=== PATIENT | female | born 1930 | race Caucasian/White ===

== ENCOUNTER 2017-04-07 09:57 | Emergency (ER) | payer MEDICARE, OTHER ==
[~2017-04-07] VITALS: Ht 160 cm; Wt 40.8 kg
[2017-04-07] MEDS ORDERED: K-TAB ER20 MEQ PO (10:45)
[2017-04-07] MEDS ORDERED: MEMANTINE HCL5 MG PO (10:46)
[2017-04-07] MEDS ORDERED: PLAVIX75 MG PO (10:47)
[2017-04-07] MEDS ORDERED: NIFEDIPINE ER30 M1 PO (10:47)
[2017-04-07] MEDS ORDERED: NORCO 5-325 TA1 EACH PO (10:48)
[2017-04-07] MEDS ORDERED: LUTEIN20 MG PO (10:48)
[2017-04-07] MEDS ORDERED: NITROSTAT0.4 MG SL (10:57)
== END 2017-04-07 13:48 | disposition home or self-care (01) ==
LOC: ED 09:57
DX: S32.10XA Unspecified fracture of sacrum, initial encounter for closed fracture (principal); S32.602A Unspecified fracture of left ischium, initial encounter for closed fracture; Z88.8 Allergy status to other drugs, medicaments and biological substances; Z88.7 Allergy status to serum and vaccine; Z88.0 Allergy status to penicillin; Z79.899 Other long term (current) drug therapy; W11.XXXA Fall on and from ladder, initial encounter
CPT/HCPCS: 72192; 73502; 99284

== ENCOUNTER 2017-09-22 09:58 | Emergency (ER) | payer MEDICARE, OTHER ==
[~2017-09-22] VITALS: Ht 160 cm; Wt 40.8 kg
--- OUTSIDE RECORDS SUMMARY | ~2017-09-22 | XMS | Clinical Summary ---
Demographics + + + | Address | [address] | | | [place] [address] | + + + | Home Phone | | + + + | Preferred Language | Unknown | + + + | Marital Status | Single | + + + | Caodaism Affiliation | Unknown | + + + | Race | White | + + + | Ethnic Group | Not or | + + + Author + + + | Author | NON REVENUE LOCATIONS | + + + | Organization | NON REVENUE LOCATIONS | + + + | Address | Unknown | + + + | Phone | Unavailable | + + + Support + + +---------+ + | Name | Relationship | Address | Phone | + + +---------+ + | KRISTINA PARSONS | ECON | Unknown | | + + +---------+ + Care Team Providers + +------+ + | Care Supervising Fire Marshal Name | Role | Phone | + +------+ + | Jillian Oshea MD | PP | | + +------+ + Source Comments JAQUAN is fully live on both [facility] Ambulatory and [facility] InPatient.[facility] Allergies Not on File Current Medications Not on file Active Problems Not on file Social History + +-------+ +--------+------+ | Tobacco Use | Types | Packs/Day | Years | Date | | | | | Used | | + +-------+ +--------+------+ | Never Assessed | | | | | + +-------+ +--------+------+ + + + | Sex Assigned at | Date Recorded | | | | + + + | Not on file | | + + + Plan of Treatment + + + + + | Health Maintenance | Due Date | Last Done | Comments | + + + + + | INFLUENZA VACCINE | | | | | (FLU SHOT) | 8 | | | + + + + + Results Not on filefrom Last 3 Months"
--- OUTSIDE RECORDS SUMMARY | ~2017-09-22 | XMS | Clinical Summary ---
Demographics + + + | Address | [address] | | | [place] [address] | + + + | Home Phone | | + + + | Preferred Language | Unknown | + + + | Marital Status | Single | + + + | Tenriism Affiliation | Unknown | + + + [...] Team Providers + +------+ + | Care Instructor Private Name | Role | Phone | + +------+ + | Jillian Oshea MD | PP | | + +------+ + Source Comments JAQUAN is fully live on both [facility] Ambulatory and [facility] InPatient.[facility] Allergies Not on File Current [...]
--- OUTSIDE RECORDS SUMMARY | ~2017-09-22 | XMS | Encounter Summary ---
Demographics + + + | Address | [address] | | | [address] | | | [place] [address] | + + + | Home Phone | | + + + | Preferred Language | Unknown | + + + | Marital Status | | + + + | Sikhism Affiliation | Unknown | + + + | Race | Unknown | + + + | Ethnic Group | Unknown | + + + Author + + + | Author | [facility] | | | and [place] | + + + | Organization | [facility] | | | and [place] | + + + | Address | Unknown | + + + | Phone | Unavailable | + + + Support + + + + + | Name | Relationship | Address | Phone | + + + + + | Emre Chilel | ECON | [address] | | | | | [place] [address] | | + + + + + | Kristina Guzman | ECON | Unknown | | + + + + + | Leni Landa | ECON | Unknown | | + + + + + Care Team Providers + +------+ + | Care Buggyman Name | Role | Phone | + +------+ + | Jillian Oshea MD | PCP | | + +------+ + Encounter Details +--------+ + + + + | Date | Type | Department | Care Team | Description | +--------+ + + + + | 08/27/ | Orders Only | Results for | Jillian Oshea | Other mcc | | 2017 | | [facility] | MD Leeann [address] | (current) drug | | | | and Services | [address] [place] [address] | therapy | | | | Region [phone] | [place] [address] | | | | | | [phone] | | | | | | | | +--------+ + + + + Social History + +-------+ +--------+------+ | Tobacco Use | Types | Packs/Day | Years | Date | | | | | Used | | + +-------+ +--------+------+ | Unknown If Ever | | | | | | Smoked | | | | | + +-------+ +--------+------+ + + +---------+ + | Alcohol Use | Drinks/We | oz/Week | Comments | | | ek | | | + + +---------+ + | No | | | | + + +---------+ + + + + | Sex Assigned at | Date Recorded | | | | + + + | Not on file | | + + + as of this encounter Functional Status + + + + | Functional Status | Response | Date of Assessment | + + + + | Are you deaf or do you have serious | No | 06/07/2015 | | difficulty hearing? | | | + + + + | Are you blind or do you have serious | Yes | 06/07/2015 | | difficulty seeing, even when wearing | | | | glasses? | | | + + + + | Do you have serious difficulty walking or | Yes | 06/07/2015 | | climbing stairs? (5 years old or older) | | | + + + + + + + + | Cognitive Status | Response | Date of Assessment | + + + + | Because of a physical, mental, or emotional | No | 06/07/2015 | | condition, do you have serious difficulty | | | | concentrating, remembering, or making | | | | decisions? (5 years old or older) | | | + + + + as of this encounter Plan of Treatment Not on fileas of this encounter Results Drugs of Abuse, Screen, Urine (08/27/2017 1657) + + + + | Component | Value | Ref Range | + + + + | Barbiturates Screen, | Negative | Negative | | Urine | | | + + + + | Benzodiazepines, | Negative | Negative | | Urine, Screen | | | + + + + | Cannabinoids Screen, | Negative | Negative | | Urine | | | + + + + | Cocaine Screen, | Negative | Negative | | Urine | | | + + + + | Methadone Screen, | Negative | Negative | | Urine | | | + + + + | Opiates Screen, | Negative | Negative | | Urine | | | + + + + | Phencyclidine | Negative | Negative | | Screen, Urine | | | + + + + | Methamphetamine | Negative | Negative | | Screen, Urine | | | + + + + | Amphetamine Screen, | Negative | Negative | | Urine | | | + + + + | TCA | Negative | Negative | + + + + | Oxycodone Screen, | Negative | Negative | | Urine | | | + + + + | Propoxyphene Screen, | Negative | Negative | | Urine | | | + + + + | Buprenorphine | Negative | Negative | | screen, Urine | | | + + + + + + + | Specimen | Performing Laboratory | + + + | Urine | [facility] [address] | | | [place] [address] | + + + Drugs of Abuse, Confirm, Urine (08/27/2017 1656) + + + | Specimen | Performing Laboratory | + + + | Urine | [facility] [address] | | | [place] [address] | + + + + + | Narrative | + + | See scanned image | + + in this encounter Visit Diagnoses + + | Diagnosis | + + | Other equipment operator intermodal yard (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
--- OUTSIDE RECORDS SUMMARY | ~2017-09-22 | XMS | Clinical Summary ---
Demographics + + + | Address | [address] | | | [address] | | | [place] [address] | + + + | Home Phone | | + + + | Preferred Language | Unknown | + + + | Marital Status | | + + + | Mandaen Affiliation | Unknown | + + + | Race | Unknown | + + + | Ethnic Group | Unknown | + + + Author + + + | Author | [facility] | | | and [place] | + + + | Organization | [facility] | | | and [place] | + + + | Address | Unknown | + + + | Phone | Unavailable | + + + Support + + + + + | Name | Relationship | Address | Phone | + + + + + | Emre Mayfield | ECON | [address] | | | | | [place] [address] | | + + + + + | Kriss Banks | ECON | Unknown | | + + + + + | Leni Landa | ECON | Unknown | | + + + + + Care Team Providers + +------+ + | Care Model Maker Fiberglass Name | Role | Phone | + +------+ + | Jillian Oshea MD | PP | | + +------+ + Allergies + + + + + + | Active Allergy | Reactions | Severity | Noted | Comments | | | | | Date | | + + + + + + | Donepezil | | | 06/04/19 | Leg pains | | | | | 16 | | + + + + + + | Influenza Vaccines | | | 06/04/19 | Rash/swelling | | | | | 16 | | + + + + + + | Meperidine | | | 06/04/19 | | | | | | 16 | | + + + + + + | Nortriptyline | | | 06/04/19 | | | | | | 16 | | + + + + + + | Penicillins | | | 06/04/19 | | | | | | 16 | | + + + + + + | Quinine | | | 06/04/19 | | | | | | 16 | | + + + + + + | Reserpine | | | 06/04/19 | | | | | | 16 | | + + + + + + | Tegaserod | | | 06/04/19 | | | | | | 16 | | + + + + + + | Tetanus Toxoids | | | 06/04/19 | This pt has a hard | | | | | 16 | time with almost | | | | | | any shot per Dr. | | | | | | [facility]KS 01/16/2006 | + + + + + + Current Medications + + + +---------+------+------+-------+ | Prescription | Sig. | Disp. | Refills | Star | End | Statu | | | | | | t | Date | s | | | | | | Date | | | + + + +---------+------+------+-------+ | alendronate | Take 70 mg by mouth | | | | | Activ | | (FOSAMAX) 70 mg | every 7 days. | | | | | e | | tablet | | | | | | | + + + +---------+------+------+-------+ | nitroglycerin | Place 1 tablet under | 100 | 12 | / | | Activ | | (NITROSTAT) 0.4 mg | the tongue every 5 | tablet | | 2/20 | | e | | SL tablet | minutes as needed | | | 16 | | | | | for Chest pain. | | | | | | + + + +---------+------+------+-------+ | mirtazapine | Take 1 tablet by | 30 | 0 | 02/0 | | Activ | | (REMERON) 7.5 MG | mouth nightly. | tablet | | 2/20 | | e | | tablet | | | | 17 | | | + + + +---------+------+------+-------+ | menthol-methyl | Apply 1 Application | 99.2 g | 0 | 02/0 | | Activ | | salicylate (ICY HOT | topically 3 times | | | 2/20 | | e | | BALM EXTRA STRENGTH) | daily as needed (rub | | | 17 | | | | 7.6-29 % OINT | on back). | | | | | | + + + +---------+------+------+-------+ | magnesium oxide | Take 1 tablet by | 90 | 0 | 02/0 | | Activ | | (MAG-OX) 400 mg | mouth 3 times daily. | tablet | | 2/20 | | e | | tablet | | | | 17 | | | + + + +---------+------+------+-------+ | lidocaine | Place 1 patch onto | 30 | 0 | 02/0 | | Activ | | (LIDODERM) 5% patch | the skin Daily. | patch | | 2/20 | | e | | | Apply for 12 hours, | | | 17 | | | | | then remove for 12 | | | | | | | | hours. | | | | | | + + + +---------+------+------+-------+ | | Take 1-2 tablets by | 60 | 0 | 02/0 | | Activ | | HYDROcodone-acetamin | mouth every 4 hours | tablet | | 2/20 | | e | | ophen (NORCO) 10-325 | as needed for Pain. | | | 17 | | | | mg per tablet | | | | | | | + + + +---------+------+------+-------+ | fentaNYL | Place 1 patch onto | 10 | 0 | 02/0 | | Activ | | (DURAGESIC) 12 | the skin every 72 | patch | | 2/20 | | e | | mcg/hr | hours. | | | 17 | | | + + + +---------+------+------+-------+ | polyethylene | Take 1 diluted | 30 each | 0 | 02/0 | | Activ | | glycol (MIRALAX) | packet by mouth | | | 2/20 | | e | | packet | Daily as needed. | | | 17 | | | + + + +---------+------+------+-------+ | docusate sodium | Take 100 mg by mouth | 60 | 0 | 02/0 | | Activ | | (COLACE) 100 MG | Twice daily as | capsule | | 2/20 | | e | | capsule | needed for | | | 17 | | | | | Constipation. | | | | | | + + + +---------+------+------+-------+ | aspirin 81 mg | Take 1 tablet by | 30 | 0 | 02/0 | | Activ | | chewable tablet | mouth Daily. | tablet | | 2/20 | | e | | | | | | 17 | | | + + + +---------+------+------+-------+ | clopidogrel | Take 1 tablet by | 30 | 0 | 02/0 | | Activ | | (PLAVIX) 75 mg | mouth Daily. | tablet | | 2/20 | | e | | tablet | | | | 17 | | | + + + +---------+------+------+-------+ | latanoprost | Place 1 drop into | 2.5 mL | 0 | 02/0 | | Activ | | (XALATAN) 0.005% | the right eye | | | 2/20 | | e | | ophthalmic solution | nightly. | | | 17 | | | + + + +---------+------+------+-------+ | gabapentin | Take 2 capsules by | 60 | 0 | 02/0 | | Activ | | (NEURONTIN) 300 mg | mouth Daily. | capsule | | 2/20 | | e | | capsule | | | | 17 | | | + + + +---------+------+------+-------+ | memantine | Take 1 tablet by | 60 | 0 | 02/0 | | Activ | | (NAMENDA) 5 mg | mouth 2 times daily. | tablet | | 2/20 | | e | | tablet | | | | 17 | | | + + + +---------+------+------+-------+ | NIFEdipine (ADALAT | Take 1 tablet by | 30 | 0 | 02/0 | | Activ | | CC) 30 mg 24 hr | mouth Daily. | tablet | | 2/20 | | e | | tablet | | | | 17 | | | + + + +---------+------+------+-------+ | omeprazole | Take 1 capsule by | 60 | 0 | 02/0 | | Activ | | (PRILOSEC) 20 mg | mouth 2 times daily. | capsule | | 2/20 | | e | | capsule | | | | 17 | | | + + + +---------+------+------+-------+ Active Problems + + + | Problem | Noted Date | + + + | Failure to thrive in adult | 06/24/2016 | + + + | Weight loss | 06/24/2016 | + + + | Fall | 06/24/2016 | + + + + + | Overview: Mechanical | + + + + + | Chronic right-sided low back pain | 06/24/2016 | + + + | Compression fracture of vertebral column with delayed healing | 06/24/2016 | + + + + + | Overview: T11 | + + + + + | Dehydration with hyponatremia | 06/24/2016 | + + + | Hypokalemia | 06/24/2016 | + + + | At risk for falls | 06/21/2016 | + + + | Coronary artery disease involving bad river band coronary artery of | 06/07/2015 | | bad river band heart with unstable angina pectoris (HCC) | | + + + | Acute ST elevation myocardial infarction (STEMI) involving left | 06/04/2015 | | anterior descending coronary artery (HCC) | | + + + | Arthritis | 06/04/2015 | + + + | 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 | + + + + + | Chronic pain | 06/04/2015 | + + + + + | Overview: Overview: | | MRF on file 2010 | | Pain Scale 08/19/2012, 01/29/2013 | + + + + + | Dyslipidemia | 06/04/2015 | + + + | Environmental allergies | 06/04/2015 | + + + | Gastroesophageal reflux disease | 06/04/2015 | + + + + + | Overview: Overview: Omeprazole increased to 40mg BID by | Vee Neri 06/2014. Continue domperidone for delayed gastric | | emptying. | + + + + + | Hypertension | 06/04/2015 | + + + + + | Overview: Overview: Gets white coat HTN. 24 hour ambulatory | | BP recording 03/2011 with BPs >140 38% of the time and BPd >90 5% | | of the time. She definitely has labile BP. Max BPs is 176 but | | Min BPs is 96! Most of the BP readings are in acceptable range, | | so at this time (and considering patient preference) will not | | make any change to BP treatment. | + + + + + | Neuropathic pain syndrome (non-herpetic) | 06/04/2015 | + + + | Spinal stenosis | 06/04/2015 | + + + | Dementia | 04/05/2015 | + + + + + | Overview: Overview: | | 03/03: BRIDGER HUFF score 17 | + + + + + | Chronic constipation | 07/14/2014 | + + + + + | Overview: Overview: | | Miralax daily, add citrucel as needed. | + + + + + | Screening for condition | 09/11/2013 | + + + + + | Overview: Overview: | | SARA given 09/11/2013 score 59.3 level 3 | + + + + + | Rectal prolapse | 04/14/2013 | + + + + + | Overview: Overview: Consult 06/[address] Ingram - caron | | candidate for perineal rectosigmoidectomy. Per pt preference | | (intolerant of being on her back per her report) planning an | | observational approach for now.Distal ischemia seen on | | colonoscopy 06/2014. Plan for repair with Dr Ingram from below. | + + + + + | Unsteady gait | 04/08/2013 | + + + | Decreased muscle tone | 03/12/2013 | + + + | Decubitus ulcer of sacral region | 03/12/2013 | + + + | Obstructed diaphragmatic hernia | 02/13/2013 | + + + + + | Overview: Overview: Transferred to [place] 01/2013 for | | repair of para-esophageal hernia. | + + +---------+ + | Anxiety | 06/29/2012 | +---------+ + + + | Overview: Overview: | | See note 06/27/12 | + + + + + | Atrophic vaginitis | 05/29/2012 | + + + + + | Overview: Overview: Started 02/2012 - need to add | | progesterone if still using in July. | + + + + + | Lower urinary tract infectious disease | 05/29/2012 | + + + + + | Overview: Overview: No typical symptoms with these - when she | | has a clinical change need to check UA. | + + + + + | Pyelonephritis | 05/18/2012 | + + + | Hiatal hernia | 12/18/2011 | + + + + + | Overview: Overview: 01/2013 - hospitalized for incarcerated | | stomach from a large type IV paraesophageal hernia, s/p lap | | repair 02/11/13. | + + + + + | Retinal hemorrhage | 12/18/2011 | + + + | Retinal tear | 12/18/2011 | + + + + + | Overview: Overview: Had eyes checked in [place] 01/2012 - | | retina attachment surgery worked 2nd time around. Thinks she | | might need f/u with Dr Newton. Still doesn't have much vision, | | not sure what she's going to get back. Didn't feel up to any | | more surgeries, plans to f/u with them in the spring. | + + + + + | Advance directive discussed with patient | 06/26/2011 | + + + + + | Overview: Overview: | | POLST 12/2013 - DNR/DNI, comfort measures only | | POLST 02/2012 - DNR/DNI | | Advance Directive dated 04/16/00 | + + + + + | Recurrent falls | 05/21/2011 | + + + | Cystocele | 04/03/2011 | + + + + + | Overview: Overview: 01/2013 - had procedure. No problems. "I | | go to the bathroom like people are supposed to and I can even | | hold it." "Everything is up where it belongs." "There's kind | | of a hard thing sticking out down there and I don't have a clue | | what it is." Per doctor he didn't cut it off because didn't want | | her to hurt.Dr Denia Aiken [facility] - [phone]. Going to | | do colpocliesis 12/23/12.06/2012 - upgraded to Size 4 pessary ring | | with support. Restarted use of pessary with daily estrogen | | 02/2012 - needs to add progesterone within 6 months if not yet | | gone for surgical fix (and stopped estrogen).Service Station Attendant exam 02/2011 - | | fitted for #2 pessary. | + + + + + | Glaucoma | 04/03/2011 | + + + + + | Overview: Overview: From last OV 03/09/[address] Newton: | | "The right eye is the only good eye. Risk of losing this in the | | next 5 years is 30%. Decreased risk of vision loss by 25% is had | | by taking Lutien, Vit E, Vit C and Zinc. I wonder if she might | | tolerate some of these at this point. Thanks for your help with | | her."Follows with Dr Newton, treated with laser in past | + + + + + | Urge incontinence of urine | 04/03/2011 | + + + + + | Overview: Overview: Severe cystocele - no mood for using | | pessary at this time. Knee and shoulders hurting so bad it's not | | worth it. | + + + + + | Osteoporosis | 03/25/2011 | + + + + + | Overview: Overview: Started Fosamax 03/2011. On | | Calcium/Vitamin D (level 37 02/2011 so increased to 2000 IU | | daily)DEXA scan 02/2011 with T score -4.5 distal radius (can't | | lie flat for normal DEXA scan). | + + + + + | Special screening for malignant neoplasms, colon | 02/27/2011 | + + + + + | Overview: Overview: | | Colonoscopy 06/2014, mild diverticulosis. | | Last done 2004 repeate 10 years | + + Encounters +--------+ + + + + | Date | Type | Specialty | Care Team | Description | +--------+ + + + + | 08/27/ | Orders Only | | Jillian Oshea | Other graphic design assistant | | 2018 | | | MD Leeann | (current) drug | | | | | | therapy | +--------+ + + + + from Last 3 Months Social History + +-------+ +--------+------+ | Tobacco [...] on file | | + + + Last Filed Vital Signs + + + + | Vital Sign | Reading | Time Taken | + + + + | Blood Pressure | 141/79 | 06/28/20164 PST | + + + + | Pulse | 79 | 06/28/20161043 PST | + + + + | Temperature | 36.3 C (97.3 F) | 06/28/20161043 PST | + + + + | Respiratory Rate | 16 | 06/28/20161043 PST | + + + + | Oxygen Saturation | 100% | 06/28/20161043 PST | + + + + | Inhaled Oxygen | - | - | | Concentration | | | + + + + | Weight | 37 kg (81 lb 8 oz) | 06/24/20161314 PST | + + + + | Height | 152.4 cm (5') | 06/24/20161314 PST | + + + + | Body Mass Index | 15.92 | 06/24/20161314 PST | + + + + Plan of Treatment Not on file Implants + +-------+--------+ +--------+--------+--------+ | Implanted | Type | Area | Manufacture | Device | Expira | Model | | | | | r | | tion | / | | | | | | Identi | Date | Serial | | | | | | fier | | / Lot | + +-------+--------+ +--------+--------+--------+ | Barry Xience Coronary Stent | Stent | Right: | BARRY | | 03/22/ | [id number] | | 3.0mm X 18mmImplanted: Qty: 1 | | Heart | VASCULAR - | | 2017 | 0 / | | on 06/06/2015 by Eric Mishra | | | DANY | | | | | MD Felice | | | | | | /[id number] | | | | | | | | 41 | + +-------+--------+ +--------+--------+--------+ | Barry Xience Coronary Stent | Stent | Left: | BARRY | | 02/06/ | [id number] | | 3.5mm X 18mmImplanted: Qty: | | Heart | VASCULAR - | | 2018 | 0-18 / | | 1 on 06/06/2015 by Vee Mishra | | DANY | | | | | Eric Viveros MD | | | | | | /[id number] | | | | | | | | 41 | + +-------+--------+ +--------+--------+--------+ | Barry Xience Coronary Stent | Stent | Left: | BARRY | | 07/20/ | [id number] | | 2.5mm X 12mm Implanted: Qty: | | Heart | VASCULAR - | | 2018 | 0-12 / | | 1 on 06/06/2015 by Tad, | | | DANY | | | | | Eric Viveros MD | | | | | | /[id number] | | | | | | | | 41 | + +-------+--------+ +--------+--------+--------+ Results Drugs of Abuse, Screen, Urine (08/27/20171656) + + + + | Component | [...] | + + + | Urine | [facility] [address] | | | [place] [address] | + + + Drugs of Abuse, Confirm, Urine (08/27/2017 5420) + + + | Specimen | Performing Laboratory | + + + | Urine | [facility] [address] | | | [place] [address] | + + + + + | Narrative | + + | See scanned image | + + from Last 3 Months Insurance + +--------+ +--------+ +---------+ | Payer | Benefi | Subscriber | Type | Phone | Address | | | t Plan | ID | | | | | | / | | | | | | | Group | | | | | + +--------+ +--------+ +---------+ | MEDICARE | MEDICA | xxxxxxxxxx | Medica | +1- | | | | RE | | re | [id number] | | | | PART A | | | | | | | AND B | | | | | + +--------+ +--------+ +---------+ | MEDICARE | MEDICA | xxxxxxxxxx | Medica | +1- | | | | RE | | re | [phone] | | | | PART A | | | | | | | AND B | | | | | + +--------+ +--------+ +---------+ | AARP | AARP | xxxxxxxxxxx | Indemn | +- | | | | MDCR | | ity | 5800 | | | | SUPPL | | | | | + +--------+ +--------+ +---------+ | AARP | AARP | xxxxxxxxxxx | Indemn | +- | | | | MDCR | | ity | 5800 | | | | SUPPL | | | | | + +--------+ +--------+ +---------+ + +--------+ +--------+ + + | Guarantor Name | Accoun | Relation to | Date | Phone | Billing Address | | | t Type | Patient | of | | | | | | | | | | + +--------+ +--------+ + + | PRIYA MAYFIELD | Person | Self [birth year] Home: | [address] | | | al/Fam | | 1931 | [phone] | [address] | | | jhonny | | | [phone] | [place] [address] | + +--------+ +--------+ + + | PRIYA MAYFIELD | Person | Self [birth year] | Home: | [address] | | | al/Fam | | 1931 | [phone] | [address] | | | [address]honny | | | [phone] | [place] [address] | + +--------+ +--------+ + +
--- OUTSIDE RECORDS SUMMARY | ~2017-09-22 | XMS | Encounter Summary ---
Demographics + + + | Address | C/O KRISTINA GUZ[address] | | | [address] | | | [place] [address] | + + + | Home Phone | | + + + | Preferred Language | Unknown | + + + | Marital Status | | + + + | Orthodoxy Affiliation | Unknown | + + + | Race | Unknown | + + + | Ethnic Group | Unknown | + + + Author + + + | Author | [facility] | | | and Darrinana | + + + | Organization | [facility] | | | [...] | | | | | [place] [address] | | + + + + + | Kristina Guzman | ECON | Unknown | | + + + + + | Leni Landa | ECON | Unknown | | + + + + + Care Team Providers + +------+ + | Care Telephone Answering Service Operator Name | Role | Phone | + +------+ + | Jillian Oshea MD | PCP | | + +------+ + Encounter Details +--------+ + + + + | Date | Type | Department | Care Team | Description | +--------+ + + + + | 08/27/ | Orders Only | Results for | Jillian Oshea | Other fpc | | 2017 | | [facility] | MD Leeann [address] | (current) drug | | | | and Services | [address] [place] [address] | therapy | | | | Region [phone] | [place] [address] | | | | | | [phone] | | | | | | | [...] | + + + | Urine | [facility] [address] | | | [place] [address] | + + + Drugs of Abuse, Confirm, Urine (08/27/2017 1656) + + + | Specimen | Performing Laboratory | + + + | Urine | [facility] [address] | | | [place] [address] | + + + + + | Narrative | + + | See scanned image | + + in this encounter Visit Diagnoses + + | Diagnosis | + + | Other 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
--- OUTSIDE RECORDS SUMMARY | ~2017-09-22 | XMS | Clinical Summary ---
Demographics + + + | Address | [address]O KRISS BANKS | | | [address] | | | [place] [address] | + + + | Home Phone | | + + + | Preferred Language | Unknown | + + + | Marital Status | | + + + | Quaker Affiliation | Unknown | + + + | Race | Unknown | + + + | Ethnic Group | Unknown | + + + Author + + + | Author | [facility] | | | and Darrinana | + + + | Organization | 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 Going to | | do colpocliesis 12/23/12.06/2012 - upgraded to Size 4 pessary ring | | with support. Restarted use of pessary with daily estrogen | | 02/2012 - needs to add progesterone within 6 months if not yet | | gone for surgical fix (and stopped estrogen).Educational Program Assistant exam 02/2011 - | | fitted for [...] Only | | Jillian Oshea | Other superintendent container terminal | | 2018 | | | MD [...] Right: | BARRY | | 03/22/ | [id number] | | 3.0mm X 18mmImplanted: Qty: 1 | | Heart | VASCULAR - | | 2017 | 0 / | | on 06/06/2015 by Eric Mishra | | | DANY | | | | | MD Felice | | | | | | /[id number] | | | | | | | | 41 | + +-------+--------+ +--------+--------+--------+ | Barry Xience Coronary Stent | Stent | Left: | BARRY | | 02/06/ | [id number] | | 3.5mm X 18mmImplanted: Qty: | | Heart | VASCULAR - | | 2018 | 0-18 / | | 1 on 06/06/2015 by Vee Mishra | | DANY | | | | | Eric Viveros MD | | | | | | /[id number] | | | | | | | | 41 | + +-------+--------+ +--------+--------+--------+ | Barry Xience Coronary Stent | Stent | Left: | BARRY | | 07/20/ | [id number] | | 2.5mm X 12mm Implanted: Qty: | | Heart | VASCULAR - | | 2018 | 0-12 / | | 1 on 06/06/2015 by Tad, | | | DANY | | | | | Eric Viveros MD | | | | | | /[id number] | | | | | | | [...] | + + + | Urine | [facility] [address] | | | [place] [address] | + + + Drugs of Abuse, Confirm, Urine (08/27/2017 9208) + + + | Specimen | Performing Laboratory | + + + | Urine | [facility] [address] | | | [place] [address] | + + + + + | [...] | | 1931 | [phone] | [address] | | | jhonny | | | [phone] | [place] [address] | + +--------+ +--------+ + + | PRIYA MAYFIELD | Person | Self | [birth year] | Home: | [address] | | | al/Fam | | 1931 | [phone] | [address] | | | jhonny | | | [phone] | [place] [address] | + +--------+ +--------+ + +
[~2017-09-22 09:58] MED LIST: K-TAB ER20 MEQ PO; LUTEIN20 MG PO; MEMANTINE HCL5 MG PO; NIFEDIPINE ER30 M1 PO; NITROSTAT0.4 MG SL; NORCO 5-325 TA1 EACH PO; PLAVIX75 MG PO
[2017-09-22] MEDS ORDERED: ISOSORBIDE MONO30 MG PO (13:23)
--- NOTE | 2017-09-22 21:58 | EKG ---
[facility] [address] [facility] [place] [address] Signed Normal sinus rhythm Low voltage QRS Cannot rule out Anterior infarct , age undetermined Abnormal ECG No previous ECGs available Confirmed by NATALYA KRISHNA MD ([id number]) on 09/22/2017 9:58:24 PM Electronically Signed By: NATALYA KRISHNA MD 09/22/17 2158 PATIENT NAME: PRIYA MAYFIELD Electrocardiogram DATE OF : 30 PHYSICIAN: NATALYA KRISHNA MD REPORT #: [id number] REPORT IS CONFIDENTIAL AND NOT TO BE RELEASED WITHOUT AUTHORIZATION
== END 2017-09-22 13:44 | disposition home or self-care (01) ==
LOC: ED 09:58
DX: I20.8 Other forms of angina pectoris (principal); I10 Essential (primary) hypertension; Z87.891 Personal history of nicotine dependence; Z88.8 Allergy status to other drugs, medicaments and biological substances; Z88.7 Allergy status to serum and vaccine; Z88.0 Allergy status to penicillin; Z88.1 Allergy status to other antibiotic agents; Z88.5 Allergy status to narcotic agent; Z79.899 Other long term (current) drug therapy
CPT/HCPCS: 36415; 71045; 80053; 84484; 85025; 85610; 93005; 93010; 99284

== ENCOUNTER 2017-11-23 07:37 | Inpatient (IN) | payer MEDICARE, OTHER ==
[~2017-11-23] VITALS: Ht 152.4 cm; Wt 34.5 kg
[~2017-11-23 07:37] MED LIST changes: +ISOSORBIDE MONO30 MG PO
[2017-11-23] MEDS ORDERED: CLOPIDOGREL75 MG PO (07:54)
--- NOTE | 2017-11-23 13:45 | NUR ---
PT REPOSITIONED TO RT SIDE WITH PILLOWS FOR SUPPORT, PT JESSE WELL.
--- NOTE | 2017-11-23 14:05 | NUR ---
pt partial dentures removed from mouth, oral care done with swabs. dentures in a cup soaking in cleaning solution.
--- NOTE | 2017-11-23 14:09 | NUR ---
IV SITE INTACT, NO REDNESS OR SWELLING AT SITE, FLUIDS INFUSE EASILY. PT VERY WEAK, UNABLE TO MOVE HERSELF. PT PLEASNTLY CONFUSED.
--- NOTE | 2017-11-23 14:15 | NUR ---
REPOSITIONED PT UP IN BED TO SITTING POSITION WITH MANY PILLOWS FOR SUPPORT.
--- NOTE | 2017-11-23 14:20 | NUR ---
ATTEMPTED TO PALCE NG TUBE IN PT NARES, UNABLE TO ADVANCE THE TUBE PAST I.5 INCHES IN EITHER NARE DUE TO SIGNIFICANT OBSTRUCTION. PT NOT ABLE TO JESSE.
--- NOTE | 2017-11-23 15:00 | NUR ---
PT EXPECTORATED LARGE AMOUNT OF THICK YELLOW SPUTUM.
--- NOTE | 2017-11-23 15:30 | NUR ---
IT WAS REPORTED TO THIS RN THAT THE PATIENT LIVES WITH HER DAUGHTER. PT IS HOME ALONE WHILE DAUGHTER IS AT WORK DURING DAYTIME HOURS.
[2017-11-23] MEDS ORDERED: HYDROCODON-ACE1 EAC8 PO (15:41)
[2017-11-23] MEDS ORDERED: PANTOPRAZOLE SO40 MG PO (15:51)
--- NOTE | 2017-11-23 16:32 | NUR ---
PT JULESIN AT THIS TIME.
--- NOTE | 2017-11-23 16:49 | NUR ---
PT REPOSITIONED TO LEFT SIDE, HEEL PROTECTORS PLACED, PILLOWS UNDER BOTH HIPS AND BETWEEN LEGS. PT WAKES EASILY, PLEASANTLY CONFUSED, VERY WEAK, NOT ABLE TO HELP OR RESIST REPOSITIONING.
--- NOTE | 2017-11-23 19:30 | NUR ---
SHIFT REPORT RECEIVED FROM NEIL DAVALOS. PT RESTING IN BED, SKIN ASSESSED. PT REPOSITIONED AT THIS TIME TO LEFT SIDE. HASKINS PATENT. IVF INFUSING WNL. WILL CONTINUE TO MONITOR.
--- NOTE | 2017-11-23 21:10 | NUR ---
ASSESSMENT COMPLETED. PT IS ALERT, CONFUSED TO DATE, SURROUNDINGS/PLACE. SHE WAS ABLE TO TELL ME HER BIRTHDAY AND KNEW HER FAMILY MEMBERS THAT VISITED HER. LUNGS SOUND CLEAR AT THIS TIME, DIM IN BASES, RA. HR REGULAR. BOWEL TONES RARE. IV PATENT, INFUSING WNL. HASKINS PATENT, DRAINGING DILUTE URINE, HASKINS CARE DONE, REDNESS NOTED TO MARISOL-AREA, BARRIER CREAM APPLIED. PT HAD SMALL SOFT BM, NEW ATTENDS IN PLACE. SKIN IS VERY FRAGILE, SCATTERED BRUISES AND BLANCHABLE PRESSURE ULCERS TO HIPS AND RIBS/BACK. STAGE 2 PRESSURE ULCERS TO MID BACK (ALLEVYN APPLIED), COCCYX (ALLEVYN APPLIED), AND LEFT HIP (OPEN TO AIR). SKIN ON LEGS IS DRY AND PEELING. 3+ EDEMA NOTED IN BILATERAL FEET. PT REPOSITIONED TO RIGHT SIDE WITH PILLOW SUPPORT. WARM BLANKETS, SIPS OF WATER, AND CHAPSTICK PROVIDED. WILL CONTINUE TO MONITOR.
--- NOTE | 2017-11-24 | NUR ---
ASSESSMENT COMPLETED, NO CHANGES FROM PREVIOUS ASSESSMENT. LUNGS REMAIN CLEAR/DIM, RA. HR REGULAR. IV APPEARED TO HAVE INFILTRATED, SITE LOOKED PUFFY AND DID NOT RETURN BLOOD THOUGH IT DID FLUSH EASILY. IV D/C'D, CATHETER TIP INTACT. NEW 22G PLACED IN RIGHT FOREARM ON 3RD ATTEMPT, PT TOLERATED WELL. PT HAD SMEAR OF BM, MARISOL-CARE AND NEW ATTENDS/CHUX PROVIDED. PT GIVEN WARM BLANKETS AND SIPS OF WATER. REPOSITIONED ON LEFT SIDE. WILL CONTINUE TO MONITOR.
--- NOTE | 2017-11-24 02:05 | NUR ---
PT REPOSITIONED ONTO RIGHT SIDE AT THIS TIME WITH PILLOW SUPPORT. PT DENIES PAIN, NO APPARENT DISTRESS. IV SITE APPEARS WNL, IVF INFUSING WNL. HASKINS PATENT, DRAINING DILUTE URINE. WILL CONTINUE TO MONITOR.
--- NOTE | 2017-11-24 04:20 | NUR ---
ASSESSMENT COMPLETED. LUNGS REMAIN CLEAR/DIM, RA. HR REGULAR. BOWEL TONES RARE. MORE EDEMA NOTED: DEPENDENT IN SACRAL AND 2+ IN LEFT ANKLE. OTHERWISE, NO OTHER CHANGES FROM PREVIOUS ASSESSMENTS. REPOSITIONED ONTO LEFT SIDE WITH PILLOW SUPPORT. IV SITE APPEARS WNL, IVF INFUSING WNL. HASKINS PATENT. WILL ALLOW FOR REST AND CONTINUE TO MONITOR.
--- NOTE | 2017-11-24 06:23 | NUR ---
PT REPOSITIONED ONTO RIGHT SIDE. PT HAD SMEAR OF BM, MARISOL-CARE AND NEW ATTENDS PROVIDED, BARRIER CREAM APPLIED. IV SITE APPEARS WNL, IVF INFUSING WNL. NO APPARENT DISTRESS, PT APPEARS COMFORTABLE. WILL CONTINUE TO MONITOR.
--- NOTE | 2017-11-24 07:55 | NUR ---
repositioned pt to left side from rt side, per pt c/o pain in rt side and back. supported with pillows and heel protectors.
--- NOTE | 2017-11-24 09:45 | NUR ---
FULL REPORT GIVEN TO CARLOS TREJO.
--- NOTE | 2017-11-24 09:55 | NUR ---
PT TRANSPORTED TO MED/SURG ROOM 109 VIA BED. ALL PERSONAL BELONGINGS WENT WITH PT.
--- NOTE | 2017-11-24 10:05 | NUR ---
PT TRANSFERRED TO MED SURG FLOOR ROOM 109 WITH ANOOP AND CARLOS TREJO. AZITHROMYCIN INFUSING NOW. D5LR TO BE INFUSED AT 75ML/HR. PT MUMBLING SOME. LYING ON RIGHT SIDE NOW. TURNED AT 0900. WILL TURN AT 1100. SKIN ASSESSED ON BACK/COCCYX. DENTURES ON BEDSIDE TABLE.
--- NOTE | 2017-11-24 11:15 | NUR ---
repositioned patient to left side. physical therapist working with patient now. assessing strength. family at bedside.
--- NOTE | 2017-11-24 12:19 | NUR ---
NOTIFIED THAT FAMILY IS AT BEDSIDE
--- NOTE | 2017-11-24 12:55 | NUR ---
REPOSITIONED PATIENT OFF OF FAR LEFT SIDE. PILLOW UNDER LEFT SIDE OF BODY AND LEFT LEGS TO PROP UP ONTO BACK MORE. FAMILY IN AND OUT OF ROOM.
--- NOTE | 2017-11-24 13:41 | NUR ---
PATIENT APPEARS TO BE CONFUSED. WHEN PULSE OXEMETERY PLACED ON FINGER, PATIENT TRIES TO PUT IT IN HER MOUTH. PATIENT KEEPS TRYING TO COMMUNICATE BU IS DIFFICULT TO UNDERSTAND. PATIENT KEEPS SAYING "HAVE HEARTBURN BADLY" . RN NOTIFIED.
--- NOTE | 2017-11-24 13:47 | NUR ---
PT C/O "HEARTBURN". SAYING "IT HURTS" REPEATEDLY. WILL NOTIFY HOSPITALIST. INVANZ INFUSING NOW.
--- NOTE | 2017-11-24 13:51 | NUR ---
reglan given for c/o "heartburn" per hospitalist recommendation.
--- NOTE | 2017-11-24 16:12 | NUR ---
iv pump beeping. screen alarming for distal occlusion. adjusted iv tubing. IVF infusing now. resting comfortably with RR even and unlabored on right side.
--- NOTE | 2017-11-24 17:38 | NUR ---
repositioned patient to left side. roman catheter has good urine output. light yellow color. IVF infusing into RFA IV.
--- NOTE | 2017-11-24 17:41 | NUR ---
CCU TRANSFER TODAY. TURN Q2. PT/ST EVALS. BEDREST. UNABLE TO STAND/SIT. DEMENTIA. EMACIATED. WEIGHTS 76LBS. HASKINS CATHETER. D5LR @ 75 IN RFA. INVANZ/AZITHROMYCIN FOR ASPIRATION PNEUMONIA AND UTI. CLEAR LIQUID SIPS FOR COMFORT. REGLAN X1. ATTENDS IN PLACE. INCONTINENT. BM X2 TODAY. 2GM MAG RIDER FOR MAG 1.4.
--- NOTE | 2017-11-24 19:05 | NUR ---
BEDSIDE REPORT RECEIVED FROM NEIL GONZALEZ. PT AWAKE, LYING IN BED, C/O DISCOMFORT IN BACK. REPOSITIONED IN BED WITH PILLOWS. ALLEVYN PATCHES IN PLACE BACK, COCCYX, AND LEFT HIP. IVF INFUSING WNL. HASKINS DRAINING. CALL LIGHT WITH PT.
--- NOTE | 2017-11-24 20:35 | NUR ---
PT ASSESSMENT COMPLETE. LUNGS CLEAR, DIMINISHED THROUGHOUT, HR REGULAR RHYTHM. BOWEL TONES ACTIVE X 4. PT INCONTINENT OF STOOL, ATTENDS CHANGED WITH HENRI ISIDRO ASSIST. HASKINS CARE, HASKINS DRAINING WNL CLEAR YELLOW URINE. PT C/O 8/ BACK PAIN, PRN TYLENOL SUPPOSITORY ADMINISTERED. PT REPOSITIONED IN BED. ALLEVYN PATCHES IN PLACE ON BACK, LEFT HIP, COCCYX AT BONY PROMINENCES. EDEMA NOTED IN RLL, RIGHT HAND, CSM INTACT. PT GIVEN SIPS OF WATER, CHAPSTICK APPLIED. IV FLUSHED WNL. IVF INFUSING. FAMILY AT BEDSIDE. PT HAS NO ADDL REQUESTS, LIGHTS OFF IN ROOM.
--- NOTE | 2017-11-24 21:09 | NUR ---
VITALS AND I&OS DONE AND CHARTED. REPOSITIONED HER IN BED WITH NEIL SERRATO. CHANGED HER ATTEND INCONTINENT OF BM. BEDSIDE TABLE AND CALL LIGHT WITHIN REACH.
--- NOTE | 2017-11-24 23:10 | NUR ---
PT REPOSITIONED WITH MONA CONDON AND SANNA TO RIGHT SIDE. HASKINS CARE COMPLETE, PT INCONTINENT OF STOOL. PT DOES NOT RATE PAIN IN BACK, "NOT SURE" WHEN ASKED IF BETTER. C/O HEARTBURN, PRN REGLAN IV ADMINISTERED. IVF INFUSING WNL. HASKINS DRAINING CLEAR YELLOW DILUTE URINE. PT GIVEN TISSUE REQUESTED. NO ADDL REQUESTS. LIGHTS OFF IN ROOM.
--- NOTE | 2017-11-25 01:45 | NUR ---
PT ASSESSMENT COMPLETE. LUNGS CLEAR THROUGHOUT ALL LOBES, HR REGULAR RHYTHM. PT EDEMETOUS RLL, RUE. REPOSITIONED WITH CLASSIFICATION COUNSELOR SANNA ASSIST TO LEFT SIDE, PILLOWS IN PLACE TO AVOID SKIN BREAKDOWN. HASKINS CATHETER DRAINING. PT INCONTINENT OF SOFT BROWN STOOL. ATTENDS CHANGED. PT GIVEN SIPS OF WATER. IVF INFUSING WNL. LIGHTS OFF IN ROOM.
--- NOTE | 2017-11-25 02:21 | NUR ---
REPOSITIONED PT TO HER LEFT SIDE WITH NEIL SERRATO. CHANGED HER ATTEND INCONTINENT WITH SMALL BM. BEDSIDE TABLE AND CALL LIGHT WITHIN REACH.
--- NOTE | 2017-11-25 04:06 | NUR ---
REPOSITIONED PT IN HER BED. CHANGED HER ATTEND DUE TO INCONTINECE OF SMALL BM.
--- NOTE | 2017-11-25 04:50 | NUR ---
PT REPOSITIONED WITH HENRI August. PT INCONT OF SMALL BROWN SOFT BM, ATTENDS CHANGED, BARRIER CREAM APPLIED. REDNESS NOTED ON MARISOL AREA AND BUTTOCKS. PT DENIES PAIN, STATES "JUST SORE". PRN TYLENOL SUPPOSITORY ADMINISTERED AT THIS TIME. HASKINS EMPTIED, VITALS COMPLETE. PT HAS NO ADDL REQUESTS, REFUSES SIP OF WATER AT THIS TIME. WILL CONTINUE TO MONITOR.
--- NOTE | 2017-11-25 05:56 | NUR ---
PT INCONTINENT OF STOOL THROUGHOUT SHIFT. TURNED Q2H. ALLEVYN DRESSINGS IN PLACE ON BONY PROMINENCES, PILLOWS IN PLACE FOR PADDING. REDNESS NOTED ON BACK, AND MARISOL AREA AND BUTTOCKS. HASKINS CATHETER IN PLACE, QS DILUTE URINE. IVF INFUSING WNL THROUGHOUT SHIFT. ORIENTED TO PERSON, PLACE, NOT DATE OR EVENT. PRN TYLENOL SUPPOSITORIES X 2 FOR PAIN, REGLAN X 1.
--- NOTE | 2017-11-25 07:36 | NUR ---
RECIEVED BEDSIDE REPORT FROM NEIL SERRATO. PT AWAKE, RESPONDED WITH PAIN WHEN TURNED. PT HAD LARGE SOFT INCONT BM. RN's CLEANED AND CHANGED PT. REPLACED ALYEVENT ON COCCYX. SMALL RED/OPEN AREA. PT TURNED TO LEFT SIDE.
--- NOTE | 2017-11-25 09:10 | NUR ---
PT REPOSITIONED TO LEFT SIDE. XRAY CAME TO ROOM TO DO KUB. PT WAS UNABLE TO TRANSFER TO IMAGING. RN ASSISTED IN POSITIONING. PT WAS REPOTSITIONED BACK ON LEFT SIDE. PT STATES SHE IS COMFORTABLE AT THIS TIME. PT IV IS INFLITRATED. ADVISED DOBBY LOOMS PEGGER AND PICC RNDAIA TO ASSIST. UNABLE TO LOCATE USABLE VEINS. WARM BLANKETS PLACED ON ARMS. ABX AND RIDERS HELD UNTIL IV IS PLACED.
--- NOTE | 2017-11-25 11:04 | NUR ---
THIS LUMP ROOM SUPERVISOR AND RN ASSISTED PHYSICAL THERAPY TO REPOSITION PATIENT TO HER LEFT SIDE. PATIENT RESTING, FAMILY IN ROOM. CALL LIGHT IN REACH. NO OTHER NEEDS AT THIS TIME.
--- NOTE | 2017-11-25 11:04 | NUR ---
PT TURNED ON R SIDE WITH HELP OF PHYSICAL THERAPY. PT TOLERATED PHYSICAL THERAPY WELL, ABLE TO DO SMALL EXERCISES. RN PROVIDED ORAL CARE AND APPLED CHAP STICK TO LIPS. CHECKED FOR BM, NOTHING IN BREIF.
--- NOTE | 2017-11-25 11:55 | NUR ---
PATIENT COMPLAINS OF BEING COLD, AND DRY CHAPPED NOSE AND LIPS. THIS ICT HELP DESK TECHNICIAN PROVIDED MORE WARM BLANKETS FOR PATIENT AND ASSISTED PATIENT TO WASH FACE WITH WARM WASH CLOTH. THIS ICT HELP DESK TECHNICIAN ASSISTED PATIENT WITH ORAL CARE USING LEMON GLYCERIN SWABS, AND APPLIED CHAPSTICK TO PATIENT'S LIPS. PATIENT RESTING IN BED. CALL LIGHT IN REACH. NO OTHER NEEDS AT THIS TIME.
--- NOTE | 2017-11-25 12:29 | NUR ---
CHECKED PT'S IV. IV ABX RUNNING AT 150ML/HR DUE TO SMALL WOLF IV. WILL RETIME MAG AND POTASSIUM NEEDED. PT RESTING COMFORTABLY AT THIS TIME. HIGHWAY ENGINEER WILL DO BED BATH AT NEXT TURN.
--- NOTE | 2017-11-25 12:32 | NUR ---
PT RESTING ON LEFT SIDE, COVERED IN BLANKETS. SHE RESPONDED WHEN I CALLED TO HER AND SMILED WHEN ID'D MYSELF. SHE MENTIONED THAT SHE WAS CHILLED AND THAT HER PAIN WAS ALL OVER. PT REQUESTED PRAYER, AND I VISITED WITH HER SON AND DAUGHTER WHILE IN PT'S RM. THEY BOTH SEEM VERY ATTENTIVE TO PT, AND BOTH WERE VERY COMPLIMENTARY OF STAFF AND HOSPITAL. SON ESPECIALLY COMPARED [facility] TO OTHER MU[facility] LARGER HOSPITALS, AND STATED HE SEES "NO DIFFERENCE" IN LEVEL OF CARE. I LET STAFF KNOW OF PT'S NEED FOR ANOTHER B;AMKET AND PAIN LEVEL. WILL CONTINUE TO FOLLOW NEEDED
--- NOTE | 2017-11-25 13:39 | NUR ---
PATIENT RESTING IN BED, THIS RELAY MOTORMAN AND NEIL FLORES REPOSITIONED PATIENT, ASSISTED WITH A BED BATH, AND CHANGED PATIENT'S LINENS. PATIENT CALL LIGHT IN REACH. NO OTHER NEEDS AT THIS TIME.
--- NOTE | 2017-11-25 13:39 | NUR ---
PT ABX COMPLETED, STARTED MAG RIDER. AWARE OF DELAYS DUE TO IV PLACEMENT AND SMALL WOLF IV. PT REPOSITIONED TO R SIDE. ATTEND CHECKED WITH MED BM. PT CHANGED, BED BATH COMPLETE. COCCYX DRESSING REPLACED DUE TO SOILAGE. ORAL CARE COMPLETE.
--- NOTE | 2017-11-25 14:12 | NUR ---
PT HAS RIDER AND ABX RUNNING CONCURRANTLY. COMPATIBLITIY CONFIRMED VIA CLINICAL PHARMACOLOGY. PT TOLERATING WELL. FAMILY IN ROOM.
--- NOTE | 2017-11-25 15:23 | NUR ---
PATIENT IS MORE DIFFICULT TO WAKE THIS AFTERNOON. CHECKED IN WITH HER AT TIME TO REPOSISTION AND SHE AGAIN REPORTS RIGHT SIDED HIP AND RIB PAIN. REPOSITIONED HER TO THE LEFT AND UPRIGHT SO THAT SHE CAN PARTICIPATE IN SPEECH/SWALLOW EVALUATION. SHE IS COOPERATIVE BUT LESS AWARE THIS VISIT. NO CHARGE SESSION PRIMARILY INVOLVED POSITIONING.
--- NOTE | 2017-11-25 16:19 | NUR ---
PATIENT SITTING UP IN BED RESTING. CALL LIGHT IN REACH. NO OTHER NEEDS AT THIS TIME.
--- NOTE | 2017-11-25 17:43 | NUR ---
THIS BARGE MASTER HAD DIFFICULTY GETTING BLOOD PRESSURE ON PATIENT. THIS BARGE MASTER TOOK BLOOD PRESSURE MANUALLY, RN NOTIFIED.
--- NOTE | 2017-11-25 17:44 | NUR ---
THIS OIL AND GAS PRINCIPAL ASSISTED PATIENT TO EAT DINNER. PATIENT ATE WELL, CONSUMING 3/4 OF BROTH, HALF OF AN ENSURE, AND HALF OF HER JELLO. PATIENT APPEARS TO BE HUNGRY BUT TOO TIRED TO STAY AWAKE FOR MEALS. PATIENT REPOSITIONED TO HER RIGHT SIDE, PILLOWS PLACED IN PRESSURE AREAS. PATIENT CALL LIGHT IN REACH. FAMILY IN ROOM. NO OTHER NEEDS AT THIS TIME.
--- NOTE | 2017-11-25 18:06 | NUR ---
PT HAD MED & LARGE BM THIS SHIFTS. REPEAT KUB WAS CLEAR. PT FAMILY AND MD REPORT IMPROVED MENTATION THIS SHIFT. PT ORIENTED TO SELF, BUT NOT DATE, LOCTATION, OR EVENT. REDIRECTS EASILY. PT SPEAKS IN MULTIWORD STATEMENTS. PT C/O PAIN WHILE TURNING, BUT STATES "OH THAT IS MUCH BETTER" WHEN TURNED. ALLEVYN DRESSING ON COCCYX CHANGED Q CHANGE DUE TO SOILAGE. OTHER DRESSINGS INTACT, NO NEW AREAS OF REDNESS/OPEN AREAS NOTED. PT ON CLEAR LIQUIDS ONLY AT THIS TIME DUE TO MALNUTRITION. PT TOLERATES SIPS OF LIQUIDS WELL. DRINKS MORE WHEN WELDING MACHINE OPERATOR ULTRASONIC IS AT BEDSIDE FOR ASSISTANCE AND ENCOURAGEMENT. BED BATH COMPLETE, LINEN CHANGE COMPLETE.
--- NOTE | 2017-11-25 19:37 | NUR ---
RECEIVED REPORT FROM NEIL FLORES. PT IN BED, WANTING TO BE TURNED OFF HER RIGHT SIDE. BOTH RN'S MOVED PT TO HER LT SIDE, REPLACED IV FLUIDS AT THIS TIME.
--- NOTE | 2017-11-25 20:40 | NUR ---
ASSESSMENT COMPLETE. PT OFFERS NO COMPLAINTS OR CONCERNS/NEEDS AT THIS TIME.
--- NOTE | 2017-11-25 22:35 | NUR ---
HENRI TRAN AND I CHANGED PATIENT HAD LOOSE MED SIZE BM AND REPOSITIONED LAYING ON RIGHT SIDE. HAD 2 SIPS OF CLEAR ENSURE. CALL LIGHT IN REACH.
--- NOTE | 2017-11-25 22:56 | NUR ---
V/S AND I/O DONE CHARTED.
--- NOTE | 2017-11-25 23:52 | NUR ---
ENTERED PT'S ROOM TO ADMINISTER LOVENOX. SHE WAS RESTING WITH EYES CLOSED. SHE DENIES FURTHER NEEDS AT THIS TIME. CALL LIGHT IS WITHIN REACH.
--- NOTE | 2017-11-26 00:05 | NUR ---
WITH ASSIST DIGITAL ACCOUNT EXECUTIVE, PT TURNED, INCONT CARE PROVIDED.
--- NOTE | 2017-11-26 02:20 | NUR ---
WOKE FOR ASSESSMENT, UNCHANGED.
--- NOTE | 2017-11-26 04:40 | NUR ---
PT WITH EYES CLOSED, RESP EVEN AND UNLABORED. HASKINS WITH YELLOW URINE.
--- NOTE | 2017-11-26 07:15 | NUR ---
RECEIVED CRITICAL LAB VALUE, POTASSIUM. NOTIFIED DR. PIZARRO, ORDERS RECEIVED. REPORTED TO REBECA TREJO.
--- NOTE | 2017-11-26 08:00 | NUR ---
REPOSITIONED PATIENT WITH ASSISTANCE FROM HENRI MCCLAIN, SAT HER UP FOR BREAKFAST. THIS HENRI FED PATIENT BROTH AND A FEW SIPS OF APPLE JUICE. WORKERS' COMPENSATION COMMISSIONER YESSI IN ROOM AT COMPUTER. WARM BLANKET GIVEN. PATIENT TURNED ON LEFT SIDE. CALL LIGHT IN REACH. DR PIZARRO IN ROOM.
--- NOTE | 2017-11-26 09:30 | NUR ---
PATIENT IN BED, EYES CLOSED. VITALS AND I/OS CHARTED. NEIL BAXTER IN ROOM, ASSTED THIS OVERLOCK SLEEVE SETTER IN REPOSITIONING PATIENT. CALL LIGHT IN REACH
--- NOTE | 2017-11-26 09:47 | NUR ---
MORNING ASSESSMENT AND MEDICATIONS DUE. THIS RN TO BEDSIDE. PT REQUESTS TO BE REPOSITIONED. PT REPOSITIONED TO RIGHT SIDE WITH HELP FROM HENRI CALHOUN. ASSESSMENT DONE. PT FORGETFUL AND CONFUSED AT TIMES BUT PLEASENT. ASSESSMENT DONE. MEDIATIONS GIVEN. DAUGHTER AT BEDSIDE. NO REQUESTS OR COMPLAINTS. BED RAILS UP. CALL LIGHT WITHIN REACH.
--- NOTE | 2017-11-26 10:18 | NUR ---
SPOKE AT LENGTH WITH PATIENTS DAUGHTER KRISTINA BANKS IN ROOM. PATIENT WAS SLEEPING AND DID NOT PARTICIPATE. DAUGHTER STATES PATIENT HAS BEEN LIVING WITH HER RECENTLY. SHE HAS A HOME IN [place] BUT CAN NO LONGER LIVE ALONE. SHE STATES SHE STILL SEES HER PCP THERE. KRISTINA STATES THEY LOOKED AT ASSISTED LIVING, BUT IT WAS TOO EXPENSIVE AND PATIENT CAN NO LONGER SEE WELL ENOUGH TO DO OWN MEALS, ETC. 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 SHE STATES SHE WAS COMING HOME EVERY FOUR HOURS TO HELP HER TO BATHROOM, ETC. SHE STATES OTHER FAMILY IN THE AREA WORK ALSO AND SHE IS THE ONLY ONE HELPING PATIENT AT THIS TIME. WE DISCUSSED DISCHARGE PLAN. SHE STATES PATIENT WAS AT [facility] A COUPLE YEARS AGO AND IF SHE NEEDS [facility] AT DISCHARGE SHE WOULD USE THEM. SHE WANTS TO KEEP HER LOCAL SO SHE CAN VISIT OFTEN. WE DISCUSSED FINANCIAL OPTIONS. SHE STATES SHE STILL NEEDS TO EMPTY OUT PATIENTS HOME IN [place] AND SHE WILL WORK ON THIS WHILE PATIENT IS IN REHAB. SHE ALSO STATES PATIENT MAY NEED TO STAY LONG-TERM AT NURSING FACILITY. DISCUSSED THAT SHE CAN SPEAK WITH FACILITY REGARDING LONG-TERM PLAN.
--- NOTE | 2017-11-26 10:43 | NUR ---
MEDICATION DUE. THIS RN TO BEDSIDE. PT REQUESTS TO BE TURNED. PT TURNED WITH HELP FROM NEIL JOSE. AND REPOSITIONED TO LEFT SIDE. MEDICATION GIVEN. SIPS OF WATER GIVEN PER PT REQUESTS. PHYSICAL THERAPY AT BEDSIDE. PT TALKING WITH PHYSICAL THERAPY. THIS RN ASSISTS PHYSICAL THERAPIST TO TRANSFER PT TO CHAIR.
--- NOTE | 2017-11-26 11:06 | NUR ---
PT ASLEEP, DAUGHTER KRISTINA BY HER MOTHER'S SIDE-EVER VIGILANT. HAD A PLEASANT VISIT WITH KRISTINA, AND SHE SAID MOM JUST SLEEPS. STAFF HAD JUST REPOSITIONED PT FROM RIGHT TO LEFT SIDE. SOME DISCOMFORT NOTED IN PT SHE WAS MOVED. [place] [facility] [place] EXTENDED A BLESSING. WILL FOLLOW NEEDED
--- NOTE | 2017-11-26 11:28 | NUR ---
THIS RN TO ROOM TO CHECK ON PT. PT UP TO CHAIR. PT APPERS COMFORTABLE. RESTING WITH EYES CLOSED, RR = 14 BPM. POTASSIUM CONTINUES TO INFUSE. CALL LIGHT WITHIN REACH.
--- NOTE | 2017-11-26 11:51 | NUR ---
FOCUSED ASSESSMENT DUE. MEDICATION DUE. THIS RN TO BEDSIDE. ASSESSMENT DONE. MEDICAITONS GIVEN. PT TOLERATING SIPS OF JUICE. YELLOW PHLEM NOTED AFTER PTS COUGHS. PT UP TO CHAIR, PT STATES SHE IS COMFORTABLE AND HAS NO PAIN. CALL LIGHT WITHIN REACH.
--- NOTE | 2017-11-26 12:17 | NUR ---
patient up in chair, call light in reach
--- NOTE | 2017-11-26 12:44 | NUR ---
PHYSICAL THERAPY CALLED THIS RN TO ROOM REQUESTING ASSISTANCE WITH TRANSFERING PT. PT TRANSFERED WITH 3 PERSON ASSIST BACK TO BED. PT STATING "YOU PEOPLE ARE ALL TRYING TO HELP ME BUT I DONT WANT TO BE HERE ANYMORE. I JUST WANT TO GO AND BE WITH MY HUBBY." PT ADVISED TO TALK WITH HER FAMILY ABOUT PLAN OF CARE. PT REQUESTS THAT THIS RN CALL HER DAUGHTER, KRISTINA. KRISTINA CALLED AND UPDATED. KRISTINA STATES THAT HER MOM HAS BEEN MAKING COMMENTS LIKE THIS "FOR ABOUT 4 YEARS" AND THAT SHE WILL COME IN TO VISIT HER MOM AGAIN TODAY. KRISTINA STATES HER QUESTIONS HAVE BEEN ANSWERED. PT RESTING IN BED WITH EYES CLOSED. RR = 16 BPM. BED RAILS UP. CALL LIGHT WITHIN REACH.
--- NOTE | 2017-11-26 13:20 | NUR ---
PATIENT LYING IN BED, EYES CLOSED. VITALS AND I/OS CHARTED. HASKINS EMPTIED. WARM BLANKET GIVEN. CALL LIGHT IN REACH NO OTHER NEED ATT
--- NOTE | 2017-11-26 14:26 | NUR ---
DAUGHTER CALLED TO RETURN. PT WAS SAYING SHE WANTED TO GO BE WITH HER . CONNECTED WITH FAMILY PRESENT, DISCUSSED END OF LIFE ISSUES, AND THEY SEEM TO BE WELL AWARE OF PTS' WISHES, AND THE EMOTION THAT COMES WITH THIS TIME. FAMILY EXPRESS A DESIRE TO TALK MORE ABOUT COMFORT CARE, AND VISIT WITH DR PIZARRO. I NOTIFIED DR PIZARRO, SHE WILL GO IN AND VISIT AGAIN WITH FAMILY AND LET THEM KNOW THEIR OPTIONS. HAD PRAYER WITH FAMILY, WILL FOLLOW NEEDED
--- NOTE | 2017-11-26 14:41 | NUR ---
MEDICATION DUE. THIS RN TO BEDSIDE. DAUGHTER AND GREAT GRAND DAUGHTER AT BEDSIDE. FAMILY DISCUSING PLAN OF CARE WITH MD. MEDICAITON GIVEN. PT REPOSITIONED TO RIGHT SIDE WITH HELP OF HENRI MCCLAIN. PRAYER SHALL GIVEN TO PT FROM [facility]. WARM BLANKETS PROVIDED. PT STATES SHE IS COMFORTABLE. FAMILY CONTINUES TO TALK WITH MD.
--- NOTE | 2017-11-26 15:52 | NUR ---
PT WAS ASLEEP IN CHAIR UPON ST ARRIVAL. THIS CLINICIAN WAS ABLE TO WAKE HER AND ELICIT APPROPRIATE VERBAL RESPONSES BUT PRIYA DID NOT OPEN HER EYES FOR MAJORITY OF SESSION. SHE WAS AGREEABLE TO PO INTAKE OF JELLO. PARTICIPATED IN 9X TRIALS BEFORE STATING THAT HER BOTTOM WAS SORE AND THAT SHE WANTED TO LIE DOWN IN HER BED. SHE WAS TRANSFERRED TO BED VIA PT SUNITHA AND NSG SAHIL. WHILE WAITING FOR THEIR ARRIVAL, PRIYA INFORMED THIS CLINICIAN THAT SHE "DIDN'T WANT TO DO THIS ANYMORE" SHE "DOESN'T WANT TO BE HERE", SHE "WANTS TO [place]" AND THAT SHE "IS READY TO JOIN [HER] CAROLYNN". PRIYA REPEATED SOME OF THESE SENTIMENTS IN FRONT OF PT AND NSG; SAHIL SAID THAT SHE WOULD CALL HER DAUGHTER KRISTINA AND ASK HER TO COME VISIT TODAY TO VISIT AND PARTICIPATE IN PALLATIVE CARE CONVERSATION.
--- NOTE | 2017-11-26 16:12 | NUR ---
AFTERNOON ASSESSMENT DUE. THIS RN TO BEDSIDE. PT RESTING WITH EYES CLOSED (RR = 16 BPM). PT AWAKENS TO VOICE. PT REQUESTS TO BE TURNED OFF OF BACK AND ONTO LEFT SIDE. PT TURNED REQUESTED. PILLOWS IN PLACE. ASSESSMENT DONE. PT DRIFTS BACK TO SLEEP. BED RAILSUP CALL LIGHT WITHIN REACH.
--- NOTE | 2017-11-26 17:17 | NUR ---
PATIENT REPOSITIONED BY THIS MEDIA COORDINATOR AND MEDIA COORDINATORBrandee MCCLAIN. HASKINS EMPTIED. VITALS AND I/OS CHARTED. CALL LIGHT INREACH
--- NOTE | 2017-11-26 18:08 | NUR ---
PT HERE FOR SEVERE SEPSIS. IV ABX TODAY. IV POTASSIUM AND MAGNESIUM. CHRONICALLY LOW INTAKE. CLEAR DIET WITH ONLY SIPS OF WATER/JUICE. HASKINS, MINIMAL OUTPUT. PT UP TO CHAIR TODAY WITH PHYSICAL THERAPY. FULL ASSIST TRANSFER. ALLEVYN DRESSINGS INTACT TODAY. Q2 HR TURNS. PT NOT USING CALL LIGHT.
--- NOTE | 2017-11-26 19:15 | NUR ---
RECEIVED REPORT FROM NICK BAXTER GETTING UP WITH [employer] AND [employer] TO THE CHAIR. ASKING QUESTIONS OF STAFF, QUESTIONS ANSWERED.
--- NOTE | 2017-11-26 21:26 | NUR ---
PT BACK TO BED WITH ASSIST OF 2 STRATEGIC BUYER'S. REPOSITIONED WITH PILLOW SUPPORTS. PT DAUGHTER IN TO VISIT HER EARLIER IN SHIFT.
--- NOTE | 2017-11-27 00:10 | NUR ---
P TURNED BY UNPAID INTERN'S WITHIN THE HOUR. IV CONTINUES TO INFUSE PER ORDER.
--- NOTE | 2017-11-27 01:41 | NUR ---
PT ON RIGHT SIDE, EYES CLOSED, RESP EVEN AND UNLABORED
--- NOTE | 2017-11-27 04:14 | NUR ---
OFFICE MACHINES SALES REPRESENTATIVE'S TURNED PT. IV SITE UNCHANGED, FLUIDS CONTINUE TO INFUSE PER ORDER. QS URINE OUTPUT. PT WITH NO COMPLAINTS
--- NOTE | 2017-11-27 05:09 | NUR ---
CHECKED ON PT. EYES CLOSED, RESP EVEN AND UNLABAORED.
--- NOTE | 2017-11-27 06:29 | NUR ---
PT TURNED EVERY TWO HOURS, WITH PILLOW POSITIONING. CONFUSED, BUT CONVERSIVE. HASKINS WITH ADEQUATE UO, SIPS WATER GIVEN. IV SL, ON RA.
--- NOTE | 2017-11-27 08:20 | NUR ---
REPOSITIONED PATIENT AND SET HER UP FOR BREAKFAST. R/T RONNIE IN RM. THIS PARACHUTE CUSHION INSTALLER SAT BEDSIDE AND FED PATIENT ABOUT 8 SIPS OF BROTH AND ENSURE, PATIENT THEN STATED SHE WAS DONE AND WOULD RATHER WAIT TIL SHE COULD HAVE HER "REAL BREAKFAST" CALL LIGHT IN REACH
--- NOTE | 2017-11-27 09:30 | NUR ---
BEDBATH GIVEN BY THIS DRYCLEANER. LOTION ON ARMS AND LEGS. PATIENT WAS INCONT. OF BM. ATTENDS CHANGED. WARM BLANKETS AND NEW CHUCKS ON BED. VITALS AND I/OS CHARTED. CALL LIGHT IN REACH
--- NOTE | 2017-11-27 10:23 | NUR ---
MORNING ASSESSMENT AND MEDICATION DUE. MD ASKS THAT PT TRY PO MEDICATION CRUSHED IN PUDDING OR APPLE SAUCE. PT AGREABLE TO PUDDING. ASSESMENT DONE. PT TRANSFERED WITH [facility] LIFT TO CHAIR. PT ABLE TO SWALLOW SIPS OF WATER, NO COUGHING NOTED. MEDICATIONS CRUSHED AND MIXED IN PUDDING. PT ABLE TO EAT ENTIRE CONTAINER OF PUDDING. PT REQUESTS MORE FOOD, "I WANT AUGUSTIN AND HASHBROWNS." PT ADVISED THAT THIS IS NOT RECCOMENDED AT THIS TIME. PT AGREES TO CREAM OF CHICKEN SOUP. DIETARY CALLED. FAMILY AT BEDSIDE. CALL LIGHT WITHIN REACH.
--- NOTE | 2017-11-27 10:38 | NUR ---
PATIENT HAS MEDICAL DISCHARGE ORDER IN WITH PLAN TO TRANSFER TO [facility] FOR ONGOING THERAPY. NURSING REPORTS THAT THEY DO NOT NEED HELP WITH TRANSFER OR POSITIONING TODAY PRIOR TO DISCHARGE.
== END 2017-11-27 13:00 | DRG 871 ==
LOC: ED 07:37 → MS 12:44 → CCU 12:44 → MS 11-24 10:05
PROVIDERS: ADMIT Internal Medicine
DX: A41.4 Sepsis due to anaerobes (principal); J18.9 Pneumonia, unspecified organism; J96.01 Acute respiratory failure with hypoxia; E43 Unspecified severe protein-calorie malnutrition; J69.0 Pneumonitis due to inhalation of food and vomit; J15.8 Pneumonia due to other specified bacteria; Z68.1 Body mass index [BMI] 19.9 or less, adult; E87.6 Hypokalemia; D53.9 Nutritional anemia, unspecified; I25.10 Atherosclerotic heart disease of native coronary artery without angina pectoris; I10 Essential (primary) hypertension; G30.9 Alzheimer's disease, unspecified; F02.80 Dementia in other diseases classified elsewhere, unspecified severity, without behavioral disturbance, psychotic disturbance, mood disturbance, and anxiety; L89.221 Pressure ulcer of left hip, stage 1; L89.892 Pressure ulcer of other site, stage 2; R65.20 Severe sepsis without septic shock
CPT/HCPCS: 36415; 71045; 71260; 74018; 80048; 80053; 81001; 82607; 82728; 82746; 83540; 83605; 83735; 84466; 85025; 87070; 87077; 87088; 87186; 87205; 92526; 97163; 97530; J0456; J0696; J1335; J1650; J2765; J3475; J3480; J7040; J7060; J7120; Q9967